=== PATIENT | female | born 1930 | race Caucasian/White ===

== ENCOUNTER → 2017-02-26 | Outpatient (CLI) | payer MEDICARE, OTHER ==
--- NOTE | 2017-02-26 14:10 | RAD ---
EXAM: Bilateral lower extremity Doppler sonogram. HISTORY: Swelling. TECHNIQUE: Grayscale and color Doppler sonographic imaging of the lower extremity veins with spectral waveform analysis was performed. COMPARISON: None. FINDINGS: There is normal color flow, normal compressibility and there are normal spectral waveforms within the lower extremity veins. IMPRESSION: No Doppler evidence of lower extremity venous thrombosis.
== END | disposition home or self-care (01) ==
LOC: US 12:51
PROVIDERS: ATTEND Nurse Practitioner Family
DX: M79.662 Pain in left lower leg (principal); M79.661 Pain in right lower leg; R79.0 Abnormal level of blood mineral; F03.90 Unspecified dementia, unspecified severity, without behavioral disturbance, psychotic disturbance, mood disturbance, and anxiety; F05 Delirium due to known physiological condition
CPT/HCPCS: 93970

== ENCOUNTER 2017-08-01 21:35 | Emergency (ER) | payer MEDICARE, OTHER ==
[~2017-08-01] VITALS: Ht 152.4 cm; Wt 54.4 kg
--- NOTE | 2017-08-01 22:29 | RAD ---
Indication: Trauma TECHNIQUE: CT head without IV contrast COMPARISON: None FINDINGS: No pathologic extra-axial or intra-axial fluid collection. Mild diffuse cerebral atrophy noted with ex vacuo dilation of the ventricles. The basal cisterns are within normal limits. Scattered foci of low-attenuation in the bilateral basal ganglia likely lacunar infarcts. Low-attenuation of the periventricular white matter noted. No acute intracranial bleed. Small Subgaleal hematoma is seen in the left posterolateral high convexity with soft tissue injury. No calvarial fractures. Visualized paranasal sinuses and mastoid air cells are clear. IMPRESSION: 1. Small subgaleal hematoma with scalp injury overlying left posterolateral high convexity. 2. No acute intracranial bleed. 3. Bilateral low attenuating foci in the basal ganglia likely lacunar infarcts. 4. White matter changes likely secondary to chronic microvascular ischemic disease. If concern for acute ischemic stroke is high, please consider MRI brain. CT cervical spine Indication: Trauma TECHNIQUE: CT cervical spine without IV contrast with multiplanar reformats. COMPARISON: None FINDINGS: Cervical spine is in normal anatomic alignment. Atlantoaxial joint interval is preserved. No compression deformities. Facet joints are in normal anatomic alignment. There is intervertebral disc space narrowing noted at multiple levels most severe at C4-C5. Multilevel moderate facet arthropathy. No acute fractures. Significant atherosclerotic burden seen in the proximal left ICA and right ICA. No enlarged cervical lymphadenopathy. 1 cm low attenuating lesion is seen in the left thyroid lobe. Visualized lung apices are clear. Prevertebral soft tissue within normal limits. IMPRESSION: 1. No acute fractures. 2. 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 Electronically signed by: Daniel Carver DO (08/01/2017 10:26 PM) [facility]
--- NOTE | 2017-08-01 22:37 | PHYS DOC ---
General Chief Complaint: MECHANICAL FALL Stated Complaint: FALL Time Seen by MD: 21:37 Source: patient, family, EMS Exam Limitations: clinical condition (dementia) Problems: History of Present Illness Initial Comments 86-year-old female brought to the ED by EMS for fall injury. EMS reports that the patient tripped over a curb outside her home causing her to fall hitting the back of her head on the ground. No reported loss of consciousness or neck pain, no nausea or photophobia and no global headache. Patient does have a hematoma at the occiput and is on Plavix for prior TIAs and is brought to the ED for evaluation. On arrival her vital signs are stable she is awake and alert no somnolescence or focal neurologic deficit. She is very pleasant and joking with staff and her daughter who is at bedside reports that her mental status is at baseline. CT is indicated and pending. Occurred: just prior to arrival Severity: moderate Location: occipital Method of Injury: fell Loss of Consciousness: no loss of consciousness Associated Symptoms: other Allergies: Coded Allergies: No Known Drug Allergies (Unverified , 08/01/17) Past Medical History Medical History: other (TIA, hyperlipidemia, hypertension, dementia) Surgical History: other (hysterectomy, leg fracture) Social History Smoker: non-smoker Alcohol: none Drugs: none Review of Systems All Other Systems: Reviewed and Negative (review of systems as per history of present illness, patient with dementia and is a poor historian) Physical Exam General Appearance: WD/WN, no apparent distress Head: other (3 cm hematoma at the occiput no palpable bony deformity negative Harris sign negative raccoon eyes and otherwise normocephalic atraumatic) Eyes: bilateral eye normal inspection, bilateral eye PERRL, bilateral eye EOMI Ears, Nose, Throat, Mouth: hearing grossly normal, no evidence of ENT injury, no dental injury (no ear or nose discharge no fluid behind TMs bilaterally) Neck: non-tender, full range of motion, normal alignment Cardiovascular/Respiratory: normal peripheral pulses, no respiratory distress Gastrointestinal: non tender, soft Back: normal inspection, no vertebral tenderness Extremities: non-tender, normal inspection Psychiatric: alert Cranial Nerves: normal hearing, normal speech, PERRL Coordination/Gait: normal gait Motor/Sensory: no motor deficit, no sensory deficit Skin: normal color, warm/dry [place] Coma Score Best Eye Response: (4) open spontaneously Best Verbal Response: (5) oriented Best Motor Response: (6) obeys commands [place] Total: 15 Orders, Labs, Meds PATIENT: JAILENE GREENBERG ACCOUNT: [id number] : 1930 LOCATION: ER AGE: 86 SEX: F EXAM STATUS: PRE ER ORD. PHYSICIAN: MARKO WEEKS DO REASON: fall to occiput PROCEDURE: CT HEAD AND CERVICAL SPINE WO Indication: Trauma TECHNIQUE: CT head without IV contrast COMPARISON: None FINDINGS: No pathologic extra-axial or intra-axial fluid collection. Mild diffuse cerebral atrophy noted with ex vacuo dilation of the ventricles. The basal cisterns are within normal limits. Scattered foci of low-attenuation in the bilateral basal ganglia likely lacunar infarcts. Low-attenuation of the periventricular white matter noted. No acute intracranial bleed. Small Subgaleal hematoma is seen in the left posterolateral high convexity with soft tissue injury. No calvarial fractures. Visualized paranasal sinuses and mastoid air cells are clear. IMPRESSION: 1. Small subgaleal hematoma with scalp injury overlying left posterolateral high convexity. 2. No acute intracranial bleed. 3. Bilateral low attenuating foci in the basal ganglia likely lacunar infarcts. 4. White matter changes likely secondary to chronic microvascular ischemic disease. If concern for acute ischemic stroke is high, please consider MRI brain. CT cervical spine Indication: Trauma TECHNIQUE: CT cervical spine without IV contrast with multiplanar reformats. COMPARISON: None FINDINGS: Cervical spine is in normal anatomic alignment. Atlantoaxial joint interval is preserved. No compression deformities. Facet joints are in normal anatomic alignment. There is intervertebral disc space narrowing noted at multiple levels most severe at C4-C5. Multilevel moderate facet arthropathy. No acute fractures. Significant atherosclerotic burden seen in the proximal left ICA and right ICA. No enlarged cervical lymphadenopathy. 1 cm low attenuating lesion is seen in the left thyroid lobe. Visualized lung apices are clear. Prevertebral soft tissue within normal limits. IMPRESSION: 1. No acute fractures. 2. 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 Electronically signed by: Daniel Carver DO (08/01/2017 10:26 PM) [facility] DICTATED AND SIGNED BY: DANIEL CARVER DO DATE: 03/07/200 CC: FATIMAH CAPUTO MD; MARKO WEEKS DO ~ UA: WBC 5-10, leukocyte esterase small Cephalexin by mouth given in the ED and prescription No new or progressive symptoms throughout the ED course. With daughter at bedside I discussed signs and symptoms to monitor as well as indications for urgent return to the department. I discussed head injury precautions, over-the- counter medications and icing. I discussed activity modification and the daughter's questions were answered to her satisfaction. I discussed holding Plavix until follow-up with Dr. Caputo on Friday, the daughter expressed agreement and understanding with treatment plan. Departure Time of Disposition: 22:56 Disposition: 01 HOME, SELF-CARE Diagnosis: Fall, UTI, Concussion, Scalp Hematoma Condition: GOOD Patient Instructions: Concussion and Brain Injury, [id number], Scalp Hematoma Additional Instructions: Please review the patient education materials given by ED staff. Aggressive hydration to prevent dehydration. [id number] Tylenol as needed for discomfort. Ice to hematoma 15-20 minutes 4-6 times daily for the first 48 hours. No Plavix until approved by your doctor. Prescription: Cephalexin Follow-up with Dr. Caputo on Friday for recheck as already scheduled. Return to ED with new or changing symptoms. MARKO WEEKS DO Aug 01, 2017 22:37
[2017-08-01 22:46] LABS: CLARITY,URINE CLEAR; COLOR,URINE YELLOW
[2017-08-01 22:47] LABS: BILIRUBIN,URINE NEG (NEG); GLUCOSE,URINE NEG (NEG); NITRITE,URINE NEG (NEG); UROBILINOGEN,URINE 0.2 mg/dL (0.2 mg/dL)
[2017-08-01 22:48] LABS: BACTERIA,URINE FEW /HPF (0-FEW); SQUAMOUS EPITHELIAL CELL,UR FEW /LPF
[2017-08-01] MEDS ORDERED: CEPH500T PO (22:56)
[2017-08-01] MEDS ORDERED: CEPHALEXIN 250 MG CAPSULE PO ONE (23:00)
[2017-08-01 23:09] VITALS: BP 138/84
== END 2017-08-01 23:00 | disposition home or self-care (01) ==
LOC: ER 21:35
DX: S06.0X0A Concussion without loss of consciousness, initial encounter (principal); N39.0 Urinary tract infection, site not specified; E78.5 Hyperlipidemia, unspecified; F03.90 Unspecified dementia, unspecified severity, without behavioral disturbance, psychotic disturbance, mood disturbance, and anxiety; I10 Essential (primary) hypertension; Z86.73 Personal history of transient ischemic attack (TIA), and cerebral infarction without residual deficits; Z79.02 Long term (current) use of antithrombotics/antiplatelets; W01.0XXA Fall on same level from slipping, tripping and stumbling without subsequent striking against object, initial encounter; Y93.89 Activity, other specified; Y99.8 Other external cause status; Y92.098 Other place in other non-institutional residence as the place of occurrence of the external cause
CPT/HCPCS: 70450; 72125; 81001; 87086; 99285-25

== ENCOUNTER 2017-08-13 20:06 | Emergency (ER) | payer MEDICARE, OTHER ==
[~2017-08-13] VITALS: Ht 152.4 cm; Wt 54.4 kg
[~2017-08-13 20:06] MED LIST: CEPH500T PO
[2017-08-13] MEDS ORDERED: cefTRIAXone IV Push 1 GM VIAL. IVP ONE (20:45)
[2017-08-13] MEDS ORDERED: IV NORMAL SALINE 1,000ML 1,000 ML IV ONE (20:45)
[2017-08-13 21:10] LABS: BASO # 0.1 x10^3/uL (0.0-0.2); BASO % 1 % (0-3); EOS % 0 % (0-3); HEMATOCRIT 39.6 % (36.0-47.0); HEMOGLOBIN 13.5 g/dL (12.0-15.5); LYMPH # 2.5 x10^3/uL (1.0-4.8); LYMPH % 34 % (24-48); MEAN CORPUSCULAR HEMOGLOBIN 31 pg (25-35); MEAN CORPUSCULAR HGB CONC 34 g/dL (31-37); MEAN CORPUSCULAR VOLUME 90 fL (79-100); MONO # 0.7 x10^3/uL (0.0-1.1); MONO % 9 % (0-9); NEUT # 4.1 x10^3uL (1.8-7.7); NEUT % 56 % (31-73); PLATELET COUNT 245 x10^3/uL (140-400); RED CELL DISTRIBUTION WIDTH 14.6 % (11.5-14.5); WHITE BLOOD COUNT 7.4 x10^3/uL (4.0-11.0)
[2017-08-13 21:21] LABS: ALBUMIN 3.8 g/dL (3.4-5.0); ALBUMIN/GLOBULIN RATIO 1.1 (1.0-1.7); CALCIUM 9.5 mg/dL (8.5-10.1); GFR 52.7; POTASSIUM 3.4 mmol/L (3.5-5.1); TOTAL BILIRUBIN 0.3 mg/dL (0.2-1.0); TOTAL PROTEIN 7.2 g/dL (6.4-8.2)
[2017-08-13 21:32] LABS: BILIRUBIN,URINE NEG (NEG); CLARITY,URINE CLEAR; COLOR,URINE YELLOW; GLUCOSE,URINE NEG (NEG); NITRITE,URINE NEG (NEG); UROBILINOGEN,URINE 0.2 mg/dL (0.2 mg/dL)
[2017-08-13 21:33] LABS: BACTERIA,URINE 0 /HPF (0-FEW); SQUAMOUS EPITHELIAL CELL,UR FEW /LPF
[2017-08-13 21:34] LABS: HYALINE CASTS, URINE FEW /HPF
[2017-08-13 22:12] VITALS: BP 136/77
[2017-08-13] MEDS ORDERED: CEPH250S2 PO (22:13)
--- NOTE | 2017-08-13 22:13 | PHYS DOC ---
Past History Past Medical History: High Cholesterol, Hypertension, UTI Past Surgical History: Hysterectomy Alcohol Use: None Drug Use: None Adult General Chief Complaint Chief Complaint: PAIN ON URINATION HPI HPI Patient is a 86-year-old female with history significant for recent urinary tract infection presents to the ER today secondary to an episode of increased confusion at home. Daughter reports the patient lives at home with her as well as her sister. She reports that today she thinks that she did too much with her mother. She reports that they took her to [place] and they went and ran hours with her and then this evening she became confused and Leaving the house and was walking around the neighborhood and was found by her physical therapist. Patient has no other symptoms at this time. Patient has any fevers shakes chills nausea vomiting diarrhea cough cold rhinorrhea. Normal by mouth intake. No fevers. Daughter reports that currently her mother is completely back to her baseline and his conversing normal and that her normal mental status. Mother does report that she thinks her mom to call her medications but she is not sure. Daughter reports that she does not want her mother admitted because she thinks that she will do worsen the hospital if there is any way possible she would prefer us to send her home with antibiotics.\ Review of systems: Constitutional: Denies fever or chills Eyes: Denies change in visual acuity, redness, or eye pain HENT: Denies nasal congestion or sore throat Respiratory: Denies cough or shortness of breath All other systems were reviewed and found to be within normal limits, except as documented in this note. Physical exam: Constitutional: Well developed, well nourished, no acute distress, non-toxic appearance. HENT: Normocephalic, atraumatic, bilateral external ears normal, nose normal. Eyes: PERRLA, EOMI, conjunctiva normal, no discharge. Neck: Normal range of motion, no tenderness, supple, no stridor. Cardiovascular: Heart rate regular rhythm, Lungs & Thorax: Bilateral breath sounds clear to auscultation Abdomen: No abdominal distention. Skin: Warm, dry, no erythema, no rash. Back: Normal spinal curvature Extremities: No tenderness, no cyanosis, no clubbing, ROM intact, no edema. Neurologic: Alert and oriented X 3, normal motor function, normal sensory function, no focal deficits noted. Psychologic: Affect normal, judgement normal, mood normal. Patient's ER physical exam was most remarkable: Alert awake oriented 3 and appropriate. EKG as interpreted by ER physician reveals: : Labs reviewed: All normal except for 5 daily disease per high-power field unlikely consistent with urinary tract infection Assessment and plan: 1. Altered mental status that was transient with confusion. Patient is currently back to baseline. Patient refused RBCs per high per field which is unlikely causing these symptoms although it is possible. What is more likely is increased exertion today with increased traveling and running errands of the possibility. Daughter reports that her mother was started on cervical however she has not given her any of her cervical secondary to concerns of confusion. Mother and daughter both wish to be discharged home and she feels back to her baseline and she is currently appropriate. Admission was offered to them. Patient is not febrile and normal conversant. Patient be given a dose of IV Rocephin here in the ED in case this is an early urinary tract infection and will be sent home with a seven-day course of by mouth Keflex. Current Medications Current Medications Current Medications Medications (Trade) Dose Ordered Sig/Keny Start Time Stop Time Status Last Admin Dose Admin Ceftriaxone Sodium 1 gm/ Sodium Chloride 50 ml @ 100 mls/hr 1X ONCE 08/13/17 20:45 08/13/17 20:45 DC Ceftriaxone Sodium (Rocephin) 1 gm 1X ONCE 08/13/17 20:45 08/13/17 20:46 DC 08/13/17 21:02 1 GM Sodium Chloride 1,000 ml @ 1,000 mls/hr 1X ONCE 08/13/17 20:45 08/13/17 21:44 DC 08/13/17 21:02 1,000 MLS/HR Allergies Allergies Allergies Coded Allergies Type Severity Reaction Last Updated Verified No Known Drug Allergies 08/01/17 No Current Patient Data Vital Signs Vital Signs Date Time Temp Pulse Resp B/P (MAP) Pulse Ox O2 Delivery O2 Flow Rate FiO2 08/13/17 20:06 98.1 82 16 97 Room Air Lab Results Laboratory Tests Test 08/13/17 20:42 08/13/17 20:51 Urine Collection Type Unknown Urine Color Yellow Urine Clarity Clear Urine pH 5.0 Urine Specific [place] 1.010 Urine Protein Neg (NEG-TRACE) Urine Glucose (UA) Neg mg/dL (NEG) Urine Ketones (Stick) Neg mg/dL (NEG) Urine Blood Neg (NEG) Urine Nitrite Neg (NEG) Urine Bilirubin Neg (NEG) Urine Urobilinogen Dipstick 0.2 mg/dL (0.2 mg/dL) Urine Leukocyte Esterase Trace (NEG) Urine RBC 1-2 /HPF (0-2) Urine WBC 5-10 /HPF (0-4) Urine Squamous Epithelial Cells Few /LPF Urine Bacteria 0 /HPF (0-FEW) Urine Hyaline Casts Few /HPF Urine Mucus Slight /LPF White Blood Count 7.4 x10^3/uL (4.0-11.0) Red Blood Count 4.40 x10^6/uL (3.50-5.40) Hemoglobin 13.5 g/dL (12.0-15.5) Hematocrit 39.6 % (36.0-47.0) Mean Corpuscular Volume 90 fL (79-100) Mean Corpuscular Hemoglobin 31 pg (25-35) Mean Corpuscular Hemoglobin Concent 34 g/dL (31-37) Red Cell Distribution Width 14.6 % (11.5-14.5) H Platelet Count 245 x10^3/uL (140-400) Neutrophils (%) (Auto) 56 % (31-73) Lymphocytes (%) (Auto) 34 % (24-48) Monocytes (%) (Auto) 9 % (0-9) Eosinophils (%) (Auto) 0 % (0-3) Basophils (%) (Auto) 1 % (0-3) Neutrophils # (Auto) 4.1 x10^3uL (1.8-7.7) Lymphocytes # (Auto) 2.5 x10^3/uL (1.0-4.8) Monocytes # (Auto) 0.7 x10^3/uL (0.0-1.1) Eosinophils # (Auto) 0.0 x10^3/uL (0.0-0.7) Basophils # (Auto) 0.1 x10^3/uL (0.0-0.2) Sodium Level 138 mmol/L (136-145) Potassium Level 3.4 mmol/L (3.5-5.1) L Chloride Level 101 mmol/L (98-107) Carbon Dioxide Level 27 mmol/L (21-32) Anion Gap 10 (6-14) Blood Urea Nitrogen 17 mg/dL (7-20) Creatinine 1.0 mg/dL (0.6-1.0) Estimated GFR (Cockcroft-Gault) 52.7 BUN/Creatinine Ratio 17 (6-20) Glucose Level 96 mg/dL (70-99) Calcium Level 9.5 mg/dL (8.5-10.1) Total Bilirubin 0.3 mg/dL (0.2-1.0) Aspartate Amino Transferase (AST) 18 U/L (15-37) Alanine Aminotransferase (ALT) 16 U/L (14-59) Alkaline Phosphatase 144 U/L (46-116) H Total Protein 7.2 g/dL (6.4-8.2) Albumin 3.8 g/dL (3.4-5.0) Albumin/Globulin Ratio 1.1 (1.0-1.7) EKG EKG [] Radiology/Procedures Radiology/Procedures [] Course & Med Decision Making Course & Med Decision Making Pertinent Labs and Imaging studies reviewed. (See chart for details) [] Dragon Disclaimer Dragon Disclaimer This electronic medical record was generated, in whole or in part, using a voice recognition dictation system. Departure Departure: Impression: Primary Impression: Confusion Additional Impression: Urinary tract infection Disposition: HOME, SELF-CARE Condition: IMPROVED Referrals: FATIMAH CAPUTO MD (PCP) Patient Instructions: Confusion, Urinary Tract Infection Scripts Cephalexin (CEPHALEXIN) 250 Mg/5 Ml Susp.recon 10 ML PO TID for 7 Days, #210 ML Prov: JAMES TEJADA MD 08/13/17 Problem Qualifiers JAMES TEJADA MD Aug 13, 2017 22:13
== END 2017-08-13 22:24 | disposition home or self-care (01) ==
LOC: ER 20:06
DX: R41.0 Disorientation, unspecified (principal); N39.0 Urinary tract infection, site not specified; I10 Essential (primary) hypertension; E78.00 Pure hypercholesterolemia, unspecified; Z90.710 Acquired absence of both cervix and uterus
CPT/HCPCS: 36415; 80053; 81001; 85025; 87086; 87186; 96361; 96374; 99284; J0696; J7030

== ENCOUNTER 2017-10-23 11:14 | Emergency (ER) | payer MEDICARE, OTHER ==
[~2017-10-23 11:14] MED LIST changes: +CEPH250S2 PO
[2017-10-23 11:15] VITALS: BP 145/56
[2017-10-23 11:44] LABS: BASO % 0 % (0-3); EOS % 0 % (0-3); HEMATOCRIT 40.1 % (36.0-47.0); HEMOGLOBIN 13.4 g/dL (12.0-15.5); LYMPH # 1.4 x10^3/uL (1.0-4.8); LYMPH % 25 % (24-48); MEAN CORPUSCULAR HEMOGLOBIN 30 pg (25-35); MEAN CORPUSCULAR HGB CONC 34 g/dL (31-37); MEAN CORPUSCULAR VOLUME 90 fL (79-100); MONO # 0.6 x10^3/uL (0.0-1.1); MONO % 10 % (0-9); NEUT # 3.8 x10^3uL (1.8-7.7); NEUT % 65 % (31-73); PLATELET COUNT 244 x10^3/uL (140-400); RED BLOOD COUNT 4.45 x10^6/uL (3.50-5.40); RED CELL DISTRIBUTION WIDTH 16.5 % (11.5-14.5); WHITE BLOOD COUNT 5.8 x10^3/uL (4.0-11.0)
[2017-10-23 11:46] LABS: HEMOGLOBIN ISTAT 12.6 gm/dL; POTASSIUM ISTAT 3.4 mmol/L (3.5-5.0)
[2017-10-23 11:54] LABS: BACTERIA,URINE 0 /HPF (0-FEW); BILIRUBIN,URINE NEG (NEG); CLARITY,URINE CLEAR; COLOR,URINE YELLOW; GLUCOSE,URINE NEG (NEG); NITRITE,URINE NEG (NEG); RBC,URINE RARE /HPF (0-2); UROBILINOGEN,URINE 0.2 mg/dL (0.2 mg/dL); WBC,URINE RARE /HPF (0-4)
[2017-10-23 11:55] LABS: HYALINE CASTS, URINE FEW /HPF
--- NOTE | 2017-10-23 12:45 | ED.ADGEN ---
Past History Past Medical History: Dementia, High Cholesterol, Hypertension, UTI Past Surgical History: Hysterectomy Alcohol Use: None Drug Use: None Adult General Chief Complaint Chief Complaint Request for a medical screening exam HPI HPI Patient is a 86-year-old female with history of hypertension high cholesterol, dementia who presents with request for medical screening exam. Patient's daughter who is guardian and present with patient states the patient is being anxious and upset this morning regarding a visit by her sisters yes would like to put her into a snf. Patient is alert and oriented to person and place but confused with car 2 months year and president. She denies any medical complaints at this time. Patient noted to have old bruising on her forearm and left leg from a fall several days ago. Patient is not currently on anticoagulation therapy. Patient's daughter also notes that the patient has had urinary frequency and incontinence the past 2 weeks. Patient denies dysuria frequency and urgency at this time. Daughter also expresses concerns of further deterioration in membrane progression of dementia. No other acute symptoms or complaints.. [] Review of Systems Review of Systems Review symptoms as per history of present illness. Limited due the patient's dementia. Allergies Allergies Allergies Coded Allergies Type Severity Reaction Last Updated Verified No Known Drug Allergies 08/01/17 No Physical Exam Physical Exam Constitutional: Well developed, well nourished. [] HENT: Normocephalic, atraumatic, bilateral external ears normal, oropharynx moist, nose normal. [] Eyes: PERRLA, EOMI, conjunctiva normal, no discharge. [] Neck: Normal range of motion, no tenderness [] Cardiovascular:Heart rate regular rhythm, no murmur [] Lungs & Thorax: Bilateral breath sounds clear to auscultation [] Abdomen: Bowel sounds normal, soft, no tenderness. [] Skin: Warm, dry, no erythema, no rash. [] Back: No tenderness, no CVA tenderness. [] Extremities: Bruising and left extensor forearm and distal leg. No bony tenderness, good range of motion.[] Neurologic: Alert and oriented X person place, normal motor function, normal sensory function, no focal deficits noted. [] Psychologic: Affect normal, judgement normal, mood normal. [] Current Patient Data Vital Signs Vital Signs Date Time Temp Pulse Resp B/P (MAP) Pulse Ox O2 Delivery O2 Flow Rate FiO2 5/24/18 11:15 98.6 71 18 99 Room Air Lab Results Laboratory Tests Test 10/23/17 11:19 White Blood Count 5.8 x10^3/uL (4.0-11.0) Red Blood Count 4.45 x10^6/uL (3.50-5.40) Hemoglobin 13.4 g/dL (12.0-15.5) POC Hemoglobin 12.6 gm/dL Hematocrit 40.1 % (36.0-47.0) POC Hematocrit 37 % Mean Corpuscular Volume 90 fL (79-100) Mean Corpuscular Hemoglobin 30 pg (25-35) Mean Corpuscular Hemoglobin Concent 34 g/dL (31-37) Red Cell Distribution Width 16.5 % (11.5-14.5) H Platelet Count 244 x10^3/uL (140-400) Neutrophils (%) (Auto) 65 % (31-73) Lymphocytes (%) (Auto) 25 % (24-48) Monocytes (%) (Auto) 10 % (0-9) H Eosinophils (%) (Auto) 0 % (0-3) Basophils (%) (Auto) 0 % (0-3) Neutrophils # (Auto) 3.8 x10^3uL (1.8-7.7) Lymphocytes # (Auto) 1.4 x10^3/uL (1.0-4.8) Monocytes # (Auto) 0.6 x10^3/uL (0.0-1.1) Eosinophils # (Auto) 0.0 x10^3/uL (0.0-0.7) Basophils # (Auto) 0.0 x10^3/uL (0.0-0.2) Urine Collection Type Void Urine Color Yellow Urine Clarity Clear Urine pH 6.5 Urine Specific [place] 1.010 Urine Protein Neg (NEG-TRACE) Urine Glucose (UA) Neg mg/dL (NEG) Urine Ketones (Stick) Neg mg/dL (NEG) Urine Blood Neg (NEG) Urine Nitrite Neg (NEG) Urine Bilirubin Neg (NEG) Urine Urobilinogen Dipstick 0.2 mg/dL (0.2 mg/dL) Urine Leukocyte Esterase Neg (NEG) Urine RBC Rare /HPF (0-2) Urine WBC Rare /HPF (0-4) Urine Squamous Epithelial Cells None /LPF Urine Bacteria 0 /HPF (0-FEW) Urine Hyaline Casts Few /HPF Urine Mucus Slight /LPF POC Sodium 139 mmol/L (135-145) POC Potassium 3.4 mmol/L (3.5-5.0) L POC Chloride 101 mmol/L (98-110) POC Total CO2 26 mmol/L (23-32) Anion Gap 17 mmol/L (6-14) H POC Blood Urea Nitrogen 13 mg/dL (8-26) POC Creatinine 0.9 mg/dL (0.5-1.4) Glucose Level 103 mg/dL (60-99) H POC Ionized Calcium (Elizabeth) 1.2 mmol/L (1.13-1.32) EKG EKG [] Radiology/Procedures Radiology/Procedures [] Course & Med Decision Making Course & Med Decision Making Pertinent Labs and Imaging studies reviewed. (See chart for details) [Stable no signs, labs nondiagnostic. No evidence of UTI. The daughter expressed concerns of good and bad days rate related to dementia. Patient does not currently appear to be agitated.. Recommendations are to follow-up with PCP and memory career portals teacher for further evaluation and supervision of dementia. Daughter expresses that she does not feel as though the patient requires a snf and is comfortable taking her home.] Final Impression Final Impression [1. medical screening exam 2. D/o dementia] Sofia Disclaimer Remion Disclaimer This electronic medical record was generated, in whole or in part, using a voice recognition dictation system. SIRIA SCOTT DO October 23, 2017 12:45
--- NOTE | 2017-10-23 16:16 | ED.ADGEN ---
Past History Past Medical History: Dementia, High Cholesterol, Hypertension, UTI Past Surgical History: Hysterectomy Alcohol Use: None Drug Use: None Adult General Chief Complaint Chief Complaint medical screening exam HPI HPI Patient is a [] Review of Systems Review of Systems Constitutional: Denies fever or chills [] Eyes: Denies change in visual acuity, redness, or eye pain [] HENT: Denies nasal congestion or sore throat [] Respiratory: Denies cough or shortness of breath [] Cardiovascular: No additional information not addressed in HPI [] GI: Denies abdominal pain, nausea, vomiting, bloody stools or diarrhea [] : Denies dysuria or hematuria [] Musculoskeletal: Denies back pain or joint pain [] Integument: Denies rash or skin lesions [] Neurologic: Denies headache, focal weakness or sensory changes [] Endocrine: Denies polyuria or polydipsia [] All other systems were reviewed and found to be within normal limits, except as documented in this note. Allergies Allergies Allergies Coded Allergies Type Severity Reaction Last Updated Verified No Known Drug Allergies 08/01/17 No Physical Exam Physical Exam Constitutional: Well developed, well nourished, no acute distress, non-toxic appearance. [] HENT: Normocephalic, atraumatic, bilateral external ears normal, oropharynx moist, no oral exudates, nose normal. [] Eyes: PERRLA, EOMI, conjunctiva normal, no discharge. [] Neck: Normal range of motion, no tenderness, supple, no stridor. [] Cardiovascular:Heart rate regular rhythm, no murmur [] Lungs & Thorax: Bilateral breath sounds clear to auscultation [] Abdomen: Bowel sounds normal, soft, no tenderness, no masses, no pulsatile masses. [] Skin: Warm, dry, no erythema, no rash. [] Back: No tenderness, no CVA tenderness. [] Extremities: No tenderness, no cyanosis, no clubbing, ROM intact, no edema. [] Neurologic: Alert and oriented X 3, normal motor function, normal sensory function, no focal deficits noted. [] Psychologic: Affect normal, judgement normal, mood normal. [] Current Patient Data Vital Signs Vital Signs Date Time Temp Pulse Resp B/P (MAP) Pulse Ox O2 Delivery O2 Flow Rate FiO2 10/23/17 11:15 98.6 71 18 99 Room Air Lab Results Laboratory Tests Test 10/23/17 11:19 White Blood Count 5.8 x10^3/uL (4.0-11.0) Red Blood Count 4.45 x10^6/uL (3.50-5.40) Hemoglobin 13.4 g/dL (12.0-15.5) POC Hemoglobin 12.6 gm/dL Hematocrit 40.1 % (36.0-47.0) POC Hematocrit 37 % Mean Corpuscular Volume 90 fL (79-100) Mean Corpuscular Hemoglobin 30 pg (25-35) Mean Corpuscular Hemoglobin Concent 34 g/dL (31-37) Red Cell Distribution Width 16.5 % (11.5-14.5) H Platelet Count 244 x10^3/uL (140-400) Neutrophils (%) (Auto) 65 % (31-73) Lymphocytes (%) (Auto) 25 % (24-48) Monocytes (%) (Auto) 10 % (0-9) H Eosinophils (%) (Auto) 0 % (0-3) Basophils (%) (Auto) 0 % (0-3) Neutrophils # (Auto) 3.8 x10^3uL (1.8-7.7) Lymphocytes # (Auto) 1.4 x10^3/uL (1.0-4.8) Monocytes # (Auto) 0.6 x10^3/uL (0.0-1.1) Eosinophils # (Auto) 0.0 x10^3/uL (0.0-0.7) Basophils # (Auto) 0.0 x10^3/uL (0.0-0.2) Urine Collection Type Void Urine Color Yellow Urine Clarity Clear Urine pH 6.5 Urine Specific [place] 1.010 Urine Protein Neg (NEG-TRACE) Urine Glucose (UA) Neg mg/dL (NEG) Urine Ketones (Stick) Neg mg/dL (NEG) Urine Blood Neg (NEG) Urine Nitrite Neg (NEG) Urine Bilirubin Neg (NEG) Urine Urobilinogen Dipstick 0.2 mg/dL (0.2 mg/dL) Urine Leukocyte Esterase Neg (NEG) Urine RBC Rare /HPF (0-2) Urine WBC Rare /HPF (0-4) Urine Squamous Epithelial Cells None /LPF Urine Bacteria 0 /HPF (0-FEW) Urine Hyaline Casts Few /HPF Urine Mucus Slight /LPF POC Sodium 139 mmol/L (135-145) POC Potassium 3.4 mmol/L (3.5-5.0) L POC Chloride 101 mmol/L (98-110) POC Total CO2 26 mmol/L (23-32) Anion Gap 17 mmol/L (6-14) H POC Blood Urea Nitrogen 13 mg/dL (8-26) POC Creatinine 0.9 mg/dL (0.5-1.4) Glucose Level 103 mg/dL (60-99) H POC Ionized Calcium (Elizabeth) 1.2 mmol/L (1.13-1.32) EKG EKG [] Radiology/Procedures Radiology/Procedures [] Course & Med Decision Making Course & Med Decision Making Pertinent Labs and Imaging studies reviewed. (See chart for details) [] Final Impression Final Impression [] Dragon Disclaimer Dragon Disclaimer This electronic medical record was generated, in whole or in part, using a voice recognition dictation system. SIRIA SCOTT DO October 23, 2017 16:16
== END 2017-10-23 12:05 | disposition home or self-care (01) ==
LOC: ER 11:14
DX: F03.90 Unspecified dementia, unspecified severity, without behavioral disturbance, psychotic disturbance, mood disturbance, and anxiety (principal); R35.0 Frequency of micturition; E78.00 Pure hypercholesterolemia, unspecified; I10 Essential (primary) hypertension; Z87.440 Personal history of urinary (tract) infections; Z90.710 Acquired absence of both cervix and uterus
CPT/HCPCS: 36415; 80047; 81001; 85025; 99284

== ENCOUNTER → 2018-03-16 | Outpatient (CLI) | payer MEDICARE, OTHER ==
--- NOTE | 2018-03-16 15:31 | RAD ---
RENAL COMPLETE BILATERAL History: Chronic kidney disease stage III Comparison: None. Findings: Multiple sonographic images of the kidneys and urinary bladder are submitted. Right kidney measured 9.7 x 5.5 x 4.8 cm. Left kidney measured 9.6 x 5 x 3.4 cm. There is no hydronephrosis of either kidney. Ureteral jets are not seen in the urinary bladder during exam. Urinary bladder morphology is within normal limits with estimated volume of 48 cc. Cortical echogenicity of the kidneys can be considered within normal limits. Impression: 1. No significant abnormality is demonstrated. Electronically signed by: Endy Cardoso MD (03/16/2018 3:27 PM) [id number]
== END | disposition home or self-care (01) ==
LOC: US 10:40
PROVIDERS: ATTEND Family Medicine
DX: I12.9 Hypertensive chronic kidney disease with stage 1 through stage 4 chronic kidney disease, or unspecified chronic kidney disease (principal); N18.3 Chronic kidney disease, stage 3 (moderate)
CPT/HCPCS: 76770

== ENCOUNTER 2019-04-07 16:23 | Emergency (ER) | payer MEDICARE, OTHER ==
[~2019-04-07] VITALS: Ht 152.4 cm; Wt 49.5 kg
--- NOTE | 2019-04-07 17:01 | PHYS DOC ---
Past History Past Medical History: CAD, Dementia, High Cholesterol, Hypertension, UTI Past Surgical History: Hysterectomy Alcohol Use: None Drug Use: None Adult General Chief Complaint Chief Complaint: HIP PAIN HPI HPI Patient is an 88-year-old female who presents to the emergency department for evaluation along with her daughter. The patient's daughter states that the patient had wandered outside the house, and apparently fell in the driveway/garden in front of the house, as she heard the patient calling for help from the ground. She was able to help the patient up to her feet, and the patient has been able to walk, although slightly slowly. She complain of some left-sided rib pain, and question was some pain in her hips, but she is ambulatory, as above. She did sustain a superficial abrasion on her left knee but does not have any knee pain. The patient's history is limited secondary to underlying dementia, which is fairly advanced, and she does not have any recollection of the event, and is not able to provide any other meaningful history about the fall. She does not have any chest pain or shortness of breath, and no reported dizziness or lightheadedness. She does have an abrasion above her left eyebrow as well, suggesting that she struck her head. She does take Plavix according to her daughter. Patient's family states her last tetanus was about 2 years ago. Review of Systems Review of Systems Unable to obtain review of systems secondary to patient dementia Allergies Allergies Allergies Coded Allergies Type Severity Reaction Last Updated Verified No Known Drug Allergies 08/01/17 No Physical Exam Physical Exam PHYSICAL EXAM: CONSTITUTIONAL: Well developed, well nourished HEAD: normocephalic, there is a small contusion above the left eyebrow, the remainder of the cranium is atraumatic EENT: PERRL, EOMI. Conjunctivae normal color, sclerae non-icteric; moist mucous membranes. NECK: Supple, non-tender; no meningismus.There is full, painless range of motion of the cervical spine, without any focal bony midline tenderness to palpation. LUNGS: Lungs CTA, breathing even and unlabored. Normal air movement. HEART: Regular rate and rhythm, no murmur CHEST: No deformity; there is mild tenderness to palpation to the left lateral ribs, without bruising or crepitus, the remainder the chest wall is non-tender ABDOMEN: The abdomen is soft, and non-tender, no masses or bruits. EXTREM: Normal ROM; no deformity, no calf tenderness. Normal pulses palpable in all extremities. There is no pedal edema. There is chronic shortening of the right leg relative to the left, which the patient's daughter states is baseline since her prior hip fracture and repair. Both hips exhibit normal range of motion. There is no definite reproducible tenderness to palpation of the hips or pelvis. There is a superficial abrasion on the left anterior knee, without any bony tenderness to palpation or restriction in range of motion. The upper extremities are atraumatic. SKIN: No rash; no diaphoresis NEURO: Alert; normal speech impaired cognition secondary to underlying dementia, otherwise answers questions normally; CN's grossly intact; strength grossly intact without focal deficit. BACK: No CVA TTP.There is no bony tenderness to palpation of the thoracic or l umbar spine. Current Patient Data Vital Signs Vital Signs Date Time Temp Pulse Resp B/P (MAP) Pulse Ox O2 Delivery O2 Flow Rate FiO2 04/07/19 16:25 97.9 67 16 97 Room Air Lab Results Laboratory Tests Test 04/07/19 19:00 Urine Collection Type Unknown Urine Color Straw Urine Clarity Clear Urine pH 7.0 Urine Specific [place] 1.015 Urine Protein Neg Urine Glucose (UA) Neg mg/dL Urine Ketones (Stick) Neg mg/dL Urine Blood Neg Urine Nitrite Neg Urine Bilirubin Neg Urine Urobilinogen Dipstick 0.2 mg/dL Urine Leukocyte Esterase Neg Urine RBC 0 /HPF Urine WBC Rare /HPF Urine Squamous Epithelial Cells None /LPF Urine Bacteria 0 /HPF Current Medications Medications (Trade) Dose Ordered Sig/[place] Route PRN Reason Start Time Stop Time Status Last Admin Dose Admin Neomycin/ Polymyxin/ Bacitracin (Triple Antibiotic Ointment) 1 pkt STK-MED ONCE TP 04/07/19 19:29 04/07/19 19:29 DC EKG EKG Ventricular paced rhythm at a rate of 69 bpm with left axis deviation and secondary QRS widening without acute ischemic changes noted.[] Radiology/Procedures Radiology/Procedures PROCEDURE: CT HEAD WO CONTRAST CT HEAD WO CONTRAST History: Fall. Head trauma. Pain. Comparison: August 01, 2017 Technique: Noncontrast CT imaging was performed of the head. Exposure: One or more of the following individualized dose reduction techniques were utilized for this examination: 1. Automated exposure control 2. Adjustment of the mA and/or kV according to patient size 3. Use of iterative reconstruction technique. Findings: No intracranial hemorrhage. No mass effect. No hydrocephalus. Mild brain parenchymal volume loss. Moderate foci of decreased aeration within the hemispheric white matter, most often due to chronic microvascular ischemia. Bilateral basal ganglia and right thalamic chronic appearing lacunar infarcts. Left anterior lateral scalp soft tissue swelling. Imaged orbits are unremarkable. Imaged paranasal sinuses and mastoid air cells are clear. TMJ arthropathy. Impression: 1. No acute intracranial abnormality. 2. Left anterior lateral scalp soft tissue swelling. 3. Moderate sequela chronic microvascular ischemia and brain parenchymal volume loss. 4. 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 No comparison available. CLINICAL INDICATION: Pain after injury. Finding: Single AP view pelvis and two-view bilateral hip obtained. There is cortical irregularity of the superior pubic and inferior pubic rami on the left with no discrete fracture line. No displacement. The right-sided pelvic ring is intact. Mild degenerative change of the bilateral SI joint. 2 views left hip show normal bony alignment. No displaced fracture. No acute osseous or articular abnormality. 2 views the right hip show old healed fracture of the intertrochanteric region with intramedullary nail and screws in place. There is a stabilizing bob at the femoral neck. Alignment is anatomic. No acute fracture. IMPRESSION: 1. No apparent acute fracture. There is deformity of the superior and inferior pubic rami on the left which is most likely related to old healed fracture. There is persistent clinical concern, CT may provide additional information. 2. Old healed fracture of the proximal right femur status post ORIF. PROCEDURE: RIBS LEFT AND PA CHEST Single view chest and left-sided rib study dated 04/07/2019. No comparison available. Clinical data indication: Pain after fall. FINDINGS: Single upright view of the chest shows normal heart and mediastinal contours. Prominent mitral valve calcification. There is a dual lead left subclavian pacer in place. Lungs are somewhat hyperinflated but otherwise clear. No consolidation or pleural effusion. No pneumothorax. Dedicated views of left-sided ribs show no evidence of displaced left rib fracture. No acute bony abnormality. IMPRESSION: No acute radiographic abnormality. No evidence of displaced left rib fracture. Course & Med Decision Making Course & Med Decision Making Pertinent Labs and Imaging studies reviewed. (See chart for details) []Patient's condition remains stable. She is ambulatory, I discussed imaging reports with the patient's family. Patient's family request a urinalysis, as a states she is prone to UTIs. This will be performed. The patient will be released, when her urinalysis result is available. Dragon Disclaimer Dragon Disclaimer This electronic medical record was generated, in whole or in part, using a voice recognition dictation system. Departure Departure: Impression: Primary Impression: Rib contusion Additional Impressions: Accidental fall Dementia Abrasion Disposition: HOME, SELF-CARE Condition: STABLE Referrals: FATIMAH CAPUTO MD (PCP) Patient Instructions: Abrasions, Dementia, Fall Prevention and Home Safety, Rib Contusion Problem Qualifiers ALEXANDRIA FREEMAN MD Apr 07, 2019 17:01
--- NOTE | 2019-04-07 17:28 | EKG ---
[address] [address] Test Date: 2019-04-07 Test Time: 16:56:30 Pat Name: JAILENE GREENBERG Department: Room: Gender: F Lcpc: AIMEE : 1930 Requested By: ALEXANDRIA FREEMAN Order Number: [id number] Reading MD: Measurements Intervals [place] Rate: 69 P: 44 MI: 242 QRS: -82 QRSD: 150 T: 32 QT: 448 QTc: 482 Interpretive Statements SINUS RHYTHM PROLONGED [place] INTERVAL ABNORMAL LEFT AXIS DEVIATION RIGHT BUNDLE BRANCH BLOCK QRS(T) CONTOUR ABNORMALITY CONSIDER ANTEROSEPTAL MYOCARDIAL DAMAGE ABNORMAL ECG RI6.01 No previous ECG available for comparison
--- NOTE | 2019-04-07 17:51 | RAD ---
CT HEAD WO CONTRAST History: Fall. Head trauma. Pain. Comparison: August 01, 2017 Technique: Noncontrast CT imaging was performed of the head. Exposure: One or more of the following individualized dose reduction techniques were utilized for this examination: 1. Automated exposure control 2. Adjustment of the mA and/or kV according to patient size 3. Use of iterative reconstruction technique. Findings: No intracranial hemorrhage. No mass effect. No hydrocephalus. Mild brain parenchymal volume loss. Moderate foci of decreased aeration within the hemispheric white matter, most often due to chronic microvascular ischemia. Bilateral basal ganglia and right thalamic chronic appearing lacunar infarcts. Left anterior lateral scalp soft tissue swelling. Imaged orbits are unremarkable. Imaged paranasal sinuses and mastoid air cells are clear. TMJ arthropathy. Impression: 1. No acute intracranial abnormality. 2. Left anterior lateral scalp soft tissue swelling. 3. Moderate sequela chronic microvascular ischemia and brain parenchymal volume loss. 4. 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 Electronically signed by: Chris Ornelas DO (04/07/2019 5:48 PM) [id number]
--- NOTE | 2019-04-07 18:57 | RAD ---
Single view pelvis and two-view bilateral hip dated 04/07/2019. No comparison available. CLINICAL INDICATION: Pain after injury. Finding: Single AP view pelvis and two-view bilateral hip obtained. There is cortical irregularity of the superior pubic and inferior pubic rami on the left with no discrete fracture line. No displacement. The right-sided pelvic ring is intact. Mild degenerative change of the bilateral SI joint. 2 views left hip show normal bony alignment. No displaced fracture. No acute osseous or articular abnormality. 2 views the right hip show old healed fracture of the intertrochanteric region with intramedullary nail and screws in place. There is a stabilizing bob at the femoral neck. Alignment is anatomic. No acute fracture. IMPRESSION: 1. No apparent acute fracture. There is deformity of the superior and inferior pubic rami on the left which is most likely related to old healed fracture. There is persistent clinical concern, CT may provide additional information. 2. Old healed fracture of the proximal right femur status post ORIF. Electronically signed by: Shiraz Ybarra MD (04/07/2019 6:54 PM) [facility]
--- NOTE | 2019-04-07 18:59 | RAD ---
Single view chest and left-sided rib study dated 04/07/2019. No comparison available. Clinical data indication: Pain after fall. FINDINGS: Single upright view of the chest shows normal heart and mediastinal contours. Prominent mitral valve calcification. There is a dual lead left subclavian pacer in place. Lungs are somewhat hyperinflated but otherwise clear. No consolidation or pleural effusion. No pneumothorax. Dedicated views of left-sided ribs show no evidence of displaced left rib fracture. No acute bony abnormality. IMPRESSION: No acute radiographic abnormality. No evidence of displaced left rib fracture. Electronically signed by: Shiraz Ybarra MD (04/07/2019 6:56 PM) [facility]
[2019-04-07] MEDS ORDERED: NEOMY/BACITR/POLYMYXIN OINT PACKET. TP ONE (19:29)
[2019-04-07 19:30] LABS: BACTERIA,URINE 0 /HPF (0-FEW); BILIRUBIN,URINE NEG (NEG); CLARITY,URINE CLEAR; COLOR,URINE STRAW; GLUCOSE,URINE NEG (NEG); NITRITE,URINE NEG (NEG); RBC,URINE 0 /HPF (0-2); UROBILINOGEN,URINE 0.2 mg/dL (0.2 mg/dL); WBC,URINE RARE /HPF (0-4)
[2019-04-07 19:42] VITALS: BP 187/94
--- NOTE | 2019-04-13 08:21 | EKG ---
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
== END 2019-04-07 19:42 | disposition home or self-care (01) ==
LOC: ER 16:23
DX: S20.212A Contusion of left front wall of thorax, initial encounter (principal); S80.212A Abrasion, left knee, initial encounter; M25.551 Pain in right hip; M25.552 Pain in left hip; F03.90 Unspecified dementia, unspecified severity, without behavioral disturbance, psychotic disturbance, mood disturbance, and anxiety; I25.10 Atherosclerotic heart disease of native coronary artery without angina pectoris; E78.00 Pure hypercholesterolemia, unspecified; I10 Essential (primary) hypertension; Z87.440 Personal history of urinary (tract) infections; W18.39XA Other fall on same level, initial encounter; Y93.89 Activity, other specified; Y92.89 Other specified places as the place of occurrence of the external cause; Y99.8 Other external cause status
CPT/HCPCS: 70450; 71101; 73521; 81001; 93005; 99285

== ENCOUNTER 2020-08-01 13:58 | Emergency (ER) | payer MEDICARE, OTHER ==
[~2020-08-01] VITALS: Ht 152.4 cm; Wt 55.8 kg
[2020-08-01 14:37] LABS: BASO % 0 % (0-3); EOS % 1 % (0-3); HEMATOCRIT 39.1 % (36.0-47.0); HEMOGLOBIN 12.8 g/dL (12.0-15.5); LYMPH % 31 % (24-48); MEAN CORPUSCULAR HEMOGLOBIN 31 pg (25-35); MEAN CORPUSCULAR HGB CONC 33 g/dL (31-37); MEAN CORPUSCULAR VOLUME 93 fL (79-100); MONO # 0.8 x10^3/uL (0.0-1.1); MONO % 12 % (0-9); NEUT # 3.7 x10^3uL (1.8-7.7); NEUT % 56 % (31-73); PLATELET COUNT 188 x10^3/uL (140-400); RED BLOOD COUNT 4.19 x10^6/uL (3.50-5.40); RED CELL DISTRIBUTION WIDTH 14.9 % (11.5-14.5); WHITE BLOOD COUNT 6.6 x10^3/uL (4.0-11.0)
[2020-08-01 14:43] LABS: CALCIUM 8.8 mg/dL (8.5-10.1); CREATININE 0.8 mg/dL (0.6-1.0); GFR 67.7
--- NOTE | 2020-08-01 14:46 | PHYS DOC ---
Past History Past Medical History: CAD, Dementia, High Cholesterol, Hypertension, UTI Past Surgical History: Hysterectomy Alcohol Use: None Drug Use: None General Adult EDM: Chief Complaint: MECHANICAL FALL HPI: HPI: Patient is a 89-year-old female brought in by EMS after a fall yesterday at 5 PM. Patient had gotten up and walked a few feet from the couch going to the restroom and fell. Fall was unwitnessed but it was heard by daughter. Who promptly found her mom sitting on the floor. Does not believe she hit her head. Patient was not complaining much pain yesterday and went to bed, this morning got up and walked out of her room but started complaining of mid and low back pain. She is still ambulatory today, sometimes uses a walker. Patient is taking Plavix for 2 TIAs 6 years ago. No recent illness. Patient stated she fell because "I was playing with a stick" and unable to answer where she was when she fell. Patient has a history of Alzheimer's dementia and history was predominantly provided by patient's daughter. Review of Systems: Review of Systems: All other systems within normal limits except for as noted in the HPI Allergies: Allergies: Allergies Coded Allergies Type Severity Reaction Last Updated Verified No Known Drug Allergies 08/01/17 No Physical Exam: PE: Constitutional: Well developed, well nourished, no acute distress, non-toxic appearance. [] HENT: Normocephalic, atraumatic, bilateral external ears normal, nose normal. [] Eyes: PERRLA, conjunctiva normal, no discharge. [] Neck: No rigidity, supple, no stridor. [] Cardiovascular: Regular rate and rhythm, brisk cap refill [] Lungs & Thorax: Non labored symmetric respirations, no tachypnea or respiratory distress [] Abdomen: Soft, nondistended. Skin: Warm, dry, no erythema, no rash. [] Back: No step-offs or deformities, slight curvature, tenderness over various thoracic and lumbar vertebrae Extremities: No deformities, range of motion grossly intact, no lower extremity edema [] Neurologic: Alert and oriented X 3, no focal deficits noted. [] Psychologic: Affect normal, judgement normal, mood normal. [] Current Patient Data: Labs: Laboratory Tests Test 08/01/20 14:19 White Blood Count 6.6 x10^3/uL (4.0-11.0) Red Blood Count 4.19 x10^6/uL (3.50-5.40) Hemoglobin 12.8 g/dL (12.0-15.5) Hematocrit 39.1 % (36.0-47.0) Mean Corpuscular Volume 93 fL (79-100) Mean Corpuscular Hemoglobin 31 pg (25-35) Mean Corpuscular Hemoglobin Concent 33 g/dL (31-37) Red Cell Distribution Width 14.9 % (11.5-14.5) H Platelet Count 188 x10^3/uL (140-400) Neutrophils (%) (Auto) 56 % (31-73) Lymphocytes (%) (Auto) 31 % (24-48) Monocytes (%) (Auto) 12 % (0-9) H Eosinophils (%) (Auto) 1 % (0-3) Basophils (%) (Auto) 0 % (0-3) Neutrophils # (Auto) 3.7 x10^3uL (1.8-7.7) Lymphocytes # (Auto) 2.0 x10^3/uL (1.0-4.8) Monocytes # (Auto) 0.8 x10^3/uL (0.0-1.1) Eosinophils # (Auto) 0.0 x10^3/uL (0.0-0.7) Basophils # (Auto) 0.0 x10^3/uL (0.0-0.2) Vital Signs: Vital Signs Date Time Temp Pulse Resp B/P (MAP) Pulse Ox O2 Delivery O2 Flow Rate FiO2 08/01/20 13:58 99.4 79 18 170/69 (102) 94 Room Air EKG: EKG: [] Radiology/Procedures: Radiology/Procedures: PROCEDURE: CT HEAD AND CERVICAL SPINE PQRS Compliance Statement: One or more of the following individualized dose reduction techniques were utilized for this examination: 1. Automated exposure control 2. Adjustment of the mA and/or kV according to patient size 3. Use of iterative reconstruction technique CT HEAD AND CERVICAL SPINE WITHOUT CONTRAST History: Reason: fall, on plavix / Comparison: CT head without contrast, April 07, 2019. Procedure: Axial images are obtained of the head from the skull base through the vertex without IV contrast. Noncontrast helical CT of the cervical spine was performed. Axial, sagittal, and coronal reconstructions were obtained. Findings: The ventricles and sulci are prominent, consistent with age-related cerebral atrophy. There is periventricular white matter hypoattenuation. This is a nonspecific finding but is commonly due to chronic small vessel ischemic disease in a patient of this age. No mass-effect, midline shift, hemorrhage or obvious acute infarction is identified. Basilar cisterns are patent. Bone windows demonstrate no significant calvarial abnormality. The visualized paranasal sinuses are clear. Mastoid air cells are well aerated. There is no evidence of acute fracture or acute malalignment of the cervical spine. There are no perched or jumped facet joints. Facet joints are hypertrophic. The vertebral body height and alignment are maintained. There is disc space narrowing of the cervical spine with relative sparing of C2/C3 and C7/T1. There is multilevel uncinate process hypertrophy. There are bilateral carotid artery calcifications. Cardiac pacer wires are partially seen. There is a 2 cm right thyroid/isthmus nodule. The visualized lung apices are clear. IMPRESSION: 1. No acute intracranial abnormality. 2. No acute fracture of the cervical spine. 3. There is a 2 cm right thyroid nodule. Consider outpatient thyroid ultrasound if not previously performed. [] CT THORACIC SPINE WO, CT CHEST_ABDOMEN_ AND PELVIS WITHOUT CONTRAST, CT LUMBAR SPINE WO Clinical Indication: Reason: fall, on plavix / Comparison: None. Technique: Helical CT imaging of the chest, abdomen and pelvis is performed without IV or oral contrast. Using source images small [id number] multiplanar reconstructions of the thoracic and lumbar spine performed using bone algorithm. Findings: In the setting of trauma, sensitivity for detection of pathology is significantly decreased without IV contrast. There is right thyroid nodule, please refer to CT cervical spine report for further details. There is left chest dual-chamber pacer. No acute mediastinal hematoma is identified. The main pulmonary arteries are dilated suggesting pulmonary arterial hypertension. There is three-vessel coronary artery disease. There is marked mitral annular calcification. There is severe calcific aortic valve stenosis. The cardiac size is normal, no pericardial effusion. There is small hiatal hernia. There is no pneumothorax. There is no pulmonary contusion. There is minimal atelectasis or scarring in the lung bases. There is no acute traumatic solid organ injury in the upper abdomen. Moderate atherosclerotic calcification of the abdominal aorta, no aneurysm. No acute injury of bowel is identified. There is moderate to severe sigmoid colon diverticulosis. The appendix is normal. There is no intraperitoneal free air or free fluid. The urinary bladder is intact. Hysterectomy. There is right femur intramedullary bob and hip screw. Old fracture of the intertrochanteric right femur. There is old fracture of the left superior pubic ramus. The hip joints are intact. Diffuse demineralization decreases sensitivity. There are chronic appearing nondisplaced bilateral rib fractures. There is mild old compression fracture at the superior endplate of T3 there is moderate old compression fracture at the superior endplate of T11. There is mild grade 1 retrolisthesis of T11 on T12. Thoracic spine alignment is otherwise maintained. No acute compression fracture of the thoracic spine is identified. There is mild right convexity thoracic scoliosis. There is degenerative spondylosis. There is no acute compression fracture of the lumbar spine. There is minimal grade 1 retrolisthesis of L4 on L5. There is T12/L1 and L4/L5 vacuum disc phenomenon. There is lower lumbar facet hypertrophy. IMPRESSION: 1. No acute traumatic injury in the chest, abdomen, or pelvis is identified. 2. There is no acute fracture of the thoracic or lumbar spine. 3. Incidental findings as above. Heart Score: Risk Factors: Risk Factors: DM, Current or recent (<one month) smoker, HTN, HLP, family history of CAD, obesity. Risk Scores: Score 0 - 3: 2.5% MACE over next 6 weeks - Discharge Home Score 4 - 6: 20.3% MACE over next 6 weeks - Admit for Clinical Observation Score 7 - 10: 72.7% MACE over next 6 weeks - Early Invasive Strategies Course & Med Decision Making: Course & Med Decision Making Pertinent Labs and Imaging studies reviewed. (See chart for details) [] Dragon Disclaimer: Dragon Disclaimer: This electronic medical record was generated, in whole or in part, using a voice recognition dictation system. Departure Departure: Impression: Primary Impression: Fall Additional Impression: Back pain Disposition: 01 DC HOME SELF CARE/HOMELESS Condition: STABLE Referrals: FATIMAH CAPUTO MD (PCP) Patient Instructions: Back Pain, Adult Additional Instructions: Follow-up with Dr. Caputo regarding incidental finding of thyroid nodule. CLEO LOPEZ MD Aug 01, 2020 14:46
[2020-08-01 14:49] LABS: ALBUMIN 3.8 g/dL (3.4-5.0); ALBUMIN/GLOBULIN RATIO 1.4 (1.0-1.7); TOTAL BILIRUBIN 0.5 mg/dL (0.2-1.0); TOTAL PROTEIN 6.5 g/dL (6.4-8.2)
--- NOTE | 2020-08-01 15:17 | RAD ---
PQRS Compliance Statement: One or more of the following individualized dose reduction techniques were utilized for this examinat ion: 1. Automated exposure control 2. Adjustment of the mA and/or kV according to patient size 3. Use of iterative reconstruction technique CT HEAD AND CERVICAL SPINE WITHOUT CONTRAST History: Reason: fall, on plavix / Comparison: CT head without contrast, April 07, 2019. Procedure: Axial images are obtained of the head from the skull base through the vertex without IV co ntrast. Noncontrast helical CT of the cervical spine was performed. Axial, sagittal, and coronal rec onstructions were obtained. Findings: The ventricles and sulci are prominent, consistent with age-related cerebral atrophy. There is periv entricular white matter hypoattenuation. This is a nonspecific finding but is commonly due to chroni c small vessel ischemic disease in a patient of this age. No mass-effect, midline shift, hemorrhage or obvious acute infarction is identified. Basilar cistern s are patent. Bone windows demonstrate no significant calvarial abnormality. The visualized paranasal sinuses are clear. Mastoid air cells are well aerated. There is no evidence of acute fracture or acute malalignment of the cervical spine. There are no perched or jumped facet joints. Facet joints are hypertrophic. The vertebral body height and alignment are maintained. There is disc space narrowing of the cervical spine with relative spar ing of C2/C3 and C7/T1. There is multilevel uncinate process hypertrophy. There are bilateral carotid artery calcifications. Cardiac pacer wires are partially seen. There is a 2 cm right thyroid/isthmus nodule. The visualized lung apices are clear. IMPRESSION: 1. No acute intracranial abnormality. 2. No acute fracture of the cervical spine. 3. There is a 2 cm right thyroid nodule. Consider outpatient thyroid ultrasound if not previously pe rformed. Electronically signed by: Dougie Christianson MD (08/01/2020 3:15 PM) [facility]
[2020-08-01 15:30] VITALS: BP 171/77
--- NOTE | 2020-08-01 15:33 | RAD ---
PQRS Compliance Statement: One or more of the following individualized dose reduction techniques were utilized for this examinat ion: 1. Automated exposure control 2. Adjustment of the mA and/or kV according to patient size 3. Use of iterative reconstruction technique CT THORACIC SPINE WO, CT CHEST_ABDOMEN_ AND PELVIS WITHOUT CONTRAST, CT LUMBAR SPINE WO Clinical Indication: Reason: fall, on plavix / Comparison: None. Technique: Helical CT imaging of the chest, abdomen and pelvis is performed without IV or oral contra st. Using source images small [id number] multiplanar reconstructions of the thoracic and lumbar sp ine performed using bone algorithm. Findings: In the setting of trauma, sensitivity for detection of pathology is significantly decreased without I V contrast. There is right thyroid nodule, please refer to CT cervical spine report for further details. There is left chest dual-chamber pacer. No acute mediastinal hematoma is identified. The main pulmonary arter ies are dilated suggesting pulmonary arterial hypertension. There is three-vessel coronary artery dis ease. There is marked mitral annular calcification. There is severe calcific aortic valve stenosis. T he cardiac size is normal, no pericardial effusion. There is small hiatal hernia. There is no pneumothorax. There is no pulmonary contusion. There is minimal atelectasis or scarring i n the lung bases. There is no acute traumatic solid organ injury in the upper abdomen. Moderate atherosclerotic calcifi cation of the abdominal aorta, no aneurysm. No acute injury of bowel is identified. There is moderate to severe sigmoid colon diverticulosis. The appendix is normal. There is no intraperitoneal free air or free fluid. The urinary bladder is intact. Hysterectomy. There is right femur intramedullary bob and hip screw. Old fracture of the intertrochanteric right fe mur. There is old fracture of the left superior pubic ramus. The hip joints are intact. Diffuse demin eralization decreases sensitivity. There are chronic appearing nondisplaced bilateral rib fractures. There is mild old compression fracture at the superior endplate of T3 there is moderate old compressi on fracture at the superior endplate of T11. There is mild grade 1 retrolisthesis of T11 on T12. Thor acic spine alignment is otherwise maintained. No acute compression fracture of the thoracic spine is identified. There is mild right convexity thoracic scoliosis. There is degenerative spondylosis. There is no acute compression fracture of the lumbar spine. There is minimal grade 1 retrolisthesis o f L4 on L5. There is T12/L1 and L4/L5 vacuum disc phenomenon. There is lower lumbar facet hypertrophy . IMPRESSION: 1. No acute traumatic injury in the chest, abdomen, or pelvis is identified. 2. There is no acute fracture of the thoracic or lumbar spine. 3. Incidental findings as above. Electronically signed by: Dougie Christianson MD (08/01/2020 3:31 PM) [facility]
[2020-08-01] MEDS ORDERED: METOCLOPRAMIDE HCL 10 MG/2 ML VIAL. IVP ONE (15:45)
[2020-08-01 15:47] LABS: BACTERIA,URINE 0 /HPF (0-FEW); BILIRUBIN,URINE NEG (NEG); CLARITY,URINE CLEAR; COLOR,URINE COLORLESS; GLUCOSE,URINE NEG (NEG); NITRITE,URINE NEG (NEG); RBC,URINE 0 /HPF (0-2); UROBILINOGEN,URINE 0.2 mg/dL (0.2 mg/dL); WBC,URINE 0 /HPF (0-4)
[2020-08-01] MEDS ORDERED: ACETAMINOPHEN 325 MG TABLET PO ONE (16:00)
== END 2020-08-01 16:07 | disposition home or self-care (01) ==
LOC: ER 13:58
DX: M54.5 Low back pain (principal); M54.6 Pain in thoracic spine; I25.10 Atherosclerotic heart disease of native coronary artery without angina pectoris; E78.00 Pure hypercholesterolemia, unspecified; I10 Essential (primary) hypertension; G30.9 Alzheimer's disease, unspecified; F02.80 Dementia in other diseases classified elsewhere, unspecified severity, without behavioral disturbance, psychotic disturbance, mood disturbance, and anxiety; Z87.440 Personal history of urinary (tract) infections; W18.39XA Other fall on same level, initial encounter; Y93.89 Activity, other specified; Y92.89 Other specified places as the place of occurrence of the external cause; Y99.8 Other external cause status
CPT/HCPCS: 36415; 70450; 71250; 72125; 72128; 72131; 74176; 80053; 81001; 83605; 84484; 85025; 85610; 99285; P9612

== ENCOUNTER 2021-04-23 13:21 | Emergency (ER) | payer MEDICARE, OTHER ==
[~2021-04-23] VITALS: Ht 152.4 cm; Wt 52.4 kg
--- NOTE | 2021-04-23 14:04 | PHYS DOC ---
Past History Past Medical History: CAD, Dementia, High Cholesterol, Hypertension, UTI Additional Past Medical Histor: PT is on Hospice (RAJENDRA HERNANDEZ APRN) Past Surgical History: Hysterectomy (RAJENDRA HERNANDEZ APRN) Alcohol Use: None Drug Use: None (RAJENDRA HERNANDEZ APRN) General Adult EDM: Chief Complaint: KNEE INJURY HPI: HPI: Patient is an 89-year-old female who presents to the emergency department following a fall. Patient has a history of dementia and is alert and oriented to self per her baseline. Patient is at her baseline mental status. She reports that around 730 she was getting out of bed and fell. Patient is unsure if she hit her head or any loss of consciousness. Patient is on hospice. She has no complaints at this time. Patient denies any pain. Family reports that patient was complaining of left knee and thigh pain at the time and sent her in to make sure she did not have a fracture. (RAJENDRA HERNANDEZ APRN) Review of Systems: Review of Systems: 14 body systems of the review of systems have been reviewed. See HPI for pertinent positive and negative responses, otherwise all other systems are negative, nonpertinent or noncontributory (RAJENDRA HERNANDEZ APRN) Allergies: Allergies: Allergies Coded Allergies Type Severity Reaction Last Updated Verified No Known Drug Allergies 08/01/17 No (RAJENDRA HERNANDEZ APRN) Physical Exam: PE: Constitutional: Well developed, well nourished, no acute distress, non-toxic appearance. [] HENT: Normocephalic, atraumatic, bilateral external ears normal, oropharynx moist, no oral exudates, nose normal. [] Eyes: PERRL, EOMI, conjunctiva normal, no discharge. [] Neck: Normal range of motion, no bony spinal tenderness, supple, no stridor. [] Cardiovascular:Heart rate regular rhythm, no murmur [] Lungs & Thorax: Bilateral breath sounds clear to auscultation [] Abdomen: Bowel sounds normal, soft, no tenderness, no masses, no pulsatile masses. [] Skin: Warm, dry, no erythema, no rash. [] Back: No bony spinal tenderness, normal range of motion Extremities: No tenderness, no cyanosis, no clubbing, ROM intact, no edema, no shortening or rotation, no obvious deformities, no pain with palpation of the pelvis or hips. Left thigh: Patient is reporting pain to medial aspect of left thigh, full range of motion, neuro intact, no crepitus or obvious deformities, no open wounds [] Neurologic: Alert and oriented X 3, normal motor function, normal sensory fu nction, no focal deficits noted. [] Psychologic: Affect normal, judgement normal, mood normal. [] (RAJENDRA HERNANDEZ APRN) Current Patient Data: Vital Signs: Vital Signs Date Time Temp Pulse Resp B/P (MAP) Pulse Ox O2 Delivery O2 Flow Rate FiO2 04/23/21 13:21 98.1 87 18 194/82 (119) 94 Room Air (RAJENDRA HERNANDEZ APRN) EKG: EKG: [] (RAJENDRA HERNANDEZ APRN) Radiology/Procedures: Radiology/Procedures: []PROCEDURE: KNEE LEFT 3V EXAM: Left femur, 2 views; left knee, 2 views. HISTORY: Fall. COMPARISON: None. FINDINGS: 2 views of the left femur and 3 views of the left knee are obtained. There is a displaced femoral neck fracture. There is lucency traversing the greater trochanter which may also be due to a mildly displaced fracture. There is bone demineralization. This limits evaluation of bony detail. There is benign sclerosis within the distal femoral metaphysis. There is enthesopathy along the superior patella. IMPRESSION: Left femoral neck fracture. There is also lucency traversing the left greater trochanter which may be due to a mildly displaced fracture. Electronically signed by: Eneida Honeycutt MD (04/23/2021 2:03 PM) [id number] DICTATED AND SIGNED BY: ENEIDA HONEYCUTT MD DATE: 04/23/21 1401 CC: FATIMAH CAPUTO MD; RAJENDRA HERNANDEZ APRN ~MTH0 0 PROCEDURE: CT HEAD AND CERVICAL SPINE WO EXAM: 1. CT HEAD WITHOUT CONTRAST. 2. CT CERVICAL SPINE WITHOUT CONTRAST. HISTORY: Fall, trauma. TECHNIQUE: Computed tomography of the head and cervical spine was performed without intravenous contrast. One or more of the following individualized dose reduction techniques were utilized for this examination: 1. Automated exposure control. 2. Adjustment of the mA and/or kV according to patient size. 3. Use of iterative reconstruction technique. COMPARISON: 08/01/2020. FINDINGS: There is no intracranial hemorrhage. Hypoattenuation within the white matter indicates moderate chronic microangiopathic change. Prominence of the lateral ventricles and hemispheric sulci indicates moderate atrophy. The visualized paranasal sinuses appear clear. There are changes of bilateral cataract surgery. The temporal bones are unremarkable. The calvarium reveals no suspicious lesions. There are atherosclerotic calcifications of the internal carotid and vertebral arteries. There is mild scarring along the left parietal scalp. Alignment is maintained. 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 No fractures are identified. Degenerative disc disease is moderate to severe from C3 through C7. Osteopenia is at least moderate. There is no prevertebral soft tissue swelling. At C2-3, there is a small posterior disc bulge. Facet osteoarthritis is mild on the left and moderate on the right. At C3-4, there is a moderate posterior disc bulge. Central canal stenosis is mild. Left facet and uncovertebral osteoarthritis are moderate. Left facet osteoarthritis is moderate. At C4-5, there is a small posterior disc-osteophyte complex. Uncovertebral osteoarthritis is moderate bilaterally. Neural foraminal stenosis is moderate on the left. At C5-6, there is a small posterior disc-osteophyte complex. Uncovertebral osteoarthritis is moderate on the left greater than right. Neural foraminal stenosis is moderate on the left and mild on the right. At C6-7, there is a moderate uncovertebral osteoarthritis. Neural foraminal stenosis is mild bilaterally. Pacemaker leads are noted on the left. IMPRESSION: 1. No acute intracranial findings. 2. 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 3. No cervical fracture or malalignment. 4. Moderate degenerative changes for patient age as detailed above. Electronically signed by: Florin Hernandez MD (04/23/2021 3:03 PM) [id number] DICTATED AND SIGNED BY: ANGI HERNANDEZ MD DATE: 04/23/21 1451 CC: FATIMAH CAPUTO MD; RAJENDRA HERNANDEZ APRN ~MTH0 0 (RAJENDRA HERNANDEZ APRN) Heart Score: C/O Chest Pain: N/A Risk Factors: Risk Factors: DM, Current or recent (<one month) smoker, HTN, HLP, family history of CAD, obesity. Risk Scores: Score 0 - 3: 2.5% MACE over next 6 weeks - Discharge Home Score 4 - 6: 20.3% MACE over next 6 weeks - Admit for Clinical Observation Score 7 - 10: 72.7% MACE over next 6 weeks - Early Invasive Strategies (RAJENDRA HERNANDEZ APRN) Course & Med Decision Making: Course & Med Decision Making Pertinent Labs and Imaging studies reviewed. (See chart for details) [] Patient presents to the emergency department following a fall out of bed. Patient is reporting left thigh pain. Imaging was performed of patient's left thigh and knee as family stated that they were concerned that she may have injured her knee. CT imaging of head and neck was performed. CT imaging of head and neck was unremarkable. Patient was noted to have a left femoral neck fracture and a left greater trochanter mildly displaced fracture. I spoke to Dr. Piper at [facility] orthopedic group and he agreed to see the patient when she was transferred to [facility]. I discussed the findings with Dr. Cabrera and he agreed to admit the patient under his services. I discussed admission and potential treatment options for patient femoral neck fracture with her daughter and her daughter states that she would like the patient to have surgery and would be okay with taking her off of hospice. She reports that she had already talked to hospice nurse and at [facility], there will be a territory service representative for hospice there so that they can take her off of hospice. (RAJENDRA HERNANDEZ APRN) Course & Med Decision Making Did not see or evaluate patient. Did not discuss patient with [facility]. Agree with W[facility]'s work-up and disposition per note (MARCI WATSON MD) Dragon Disclaimer: Dragon Disclaimer: This electronic medical record was generated, in whole or in part, using a voice recognition dictation system. (RAJENDRA HERNANDEZ APRN) Departure Departure: Impression: Primary Impression: Femur fracture, left Qualified Codes: S72.002A - Fracture of unspecified part of neck of left femur, initial encounter for closed fracture Disposition: 02 SHORT TERM HOSPITAL Condition: GOOD Referrals: FATIMAH CAPUTO MD (PCP) RAJENDRA HERNANDEZ APRN Apr 23, 2021 14:04 MARCI WATSON MD Apr 26, 2021 18:07
--- NOTE | 2021-04-23 14:05 | RAD ---
EXAM: Left femur, 2 views; left knee, 2 views. HISTORY: Fall. COMPARISON: None. FINDINGS: 2 views of the left femur and 3 views of the left knee are obtained. There is a displaced f emoral neck fracture. There is lucency traversing the greater trochanter which may also be due to a m ildly displaced fracture. There is bone demineralization. This limits evaluation of bony detail. Ther e is benign sclerosis within the distal femoral metaphysis. There is enthesopathy along the superior patella. IMPRESSION: Left femoral neck fracture. There is also lucency traversing the left greater trochanter which may be due to a mildly displaced fracture. Electronically signed by: Eneida Santillan MD (04/23/2021 2:03 PM) [id number]
--- NOTE | 2021-04-23 15:06 | RAD ---
EXAM: 1. CT HEAD WITHOUT CONTRAST. 2. CT CERVICAL SPINE WITHOUT CONTRAST. HISTORY: Fall, trauma. TECHNIQUE: Computed tomography of the head and cervical spine was performed without intravenous contr ast. One or more of the following individualized dose reduction techniques were utilized for this exa mination: 1. Automated exposure control. 2. Adjustment of the mA and/or kV according to patient size. 3. Use of iterative reconstruction technique. COMPARISON: 08/01/2020. FINDINGS: There is no intracranial hemorrhage. Hypoattenuation within the white matter indicates mod erate chronic microangiopathic change. Prominence of the lateral ventricles and hemispheric sulci ind icates moderate atrophy. The visualized paranasal sinuses appear clear. There are changes of bilateral cataract surgery. The t emporal bones are unremarkable. The calvarium reveals no suspicious lesions. There are atheroscleroti c calcifications of the internal carotid and vertebral arteries. There is mild scarring along the lef t parietal scalp. Alignment is maintained. 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 No fractures are identified. Degenerat caron disc disease is moderate to severe from C3 through C7. Osteopenia is at least moderate. There is no prevertebral soft tissue swelling. At C2-3, there is a small posterior disc bulge. Facet osteoarthritis is mild on the left and moderate on the right. At C3-4, there is a moderate posterior disc bulge. Central canal stenosis is mild. Left facet and unc overtebral osteoarthritis are moderate. Left facet osteoarthritis is moderate. At C4-5, there is a small posterior disc-osteophyte complex. Uncovertebral osteoarthritis is moderate bilaterally. Neural foraminal stenosis is moderate on the left. At C5-6, there is a small posterior disc-osteophyte complex. Uncovertebral osteoarthritis is moderate on the left greater than right. Neural foraminal stenosis is moderate on the left and mild on the ri ght. At C6-7, there is a moderate uncovertebral osteoarthritis. Neural foraminal stenosis is mild bilatera lly. Pacemaker leads are noted on the left. IMPRESSION: 1. No acute intracranial findings. 2. 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 3. No cervical fracture or malalignment. 4. Moderate degenerative changes for patient age as detailed above. Electronically signed by: Florin Hernandez MD (04/23/2021 3:03 PM) [id number]
[2021-04-23] MEDS: HYDROcodone/APAP 5/325MG 1 TAB TABLET PO ONE (15:44)
[2021-04-23 16:30] LABS: BILIRUBIN,URINE NEG (NEG); CLARITY,URINE CLEAR; COLOR,URINE YELLOW; GLUCOSE,URINE NEG (NEG)
[2021-04-23 16:31] LABS: BACTERIA,URINE 0 /HPF (0-FEW); NITRITE,URINE NEG (NEG); RBC,URINE OCC /HPF (0-2); SQUAMOUS EPITHELIAL CELL,UR FEW /LPF; UROBILINOGEN,URINE 0.2 mg/dL (0.2 mg/dL); WBC,URINE 0 /HPF (0-4)
[2021-04-23 18:32] LABS: BASO % 0 % (0-3); CALCIUM 8.9 mg/dL (8.5-10.1); CREATININE 0.9 mg/dL (0.6-1.0); EOS % 0 % (0-3); HEMATOCRIT 42.3 % (36.0-47.0); HEMOGLOBIN 14.1 g/dL (12.0-15.5); LYMPH # 1.4 x10^3/uL (1.0-4.8); LYMPH % 9 % (24-48); MEAN CORPUSCULAR HEMOGLOBIN 31 pg (25-35); MEAN CORPUSCULAR HGB CONC 33 g/dL (31-37); MEAN CORPUSCULAR VOLUME 93 fL (79-100); MONO # 1.2 x10^3/uL (0.0-1.1); MONO % 8 % (0-9); NEUT # 12.2 x10^3uL (1.8-7.7); NEUT % 83 % (31-73); PLATELET COUNT 194 x10^3/uL (140-400); POTASSIUM 4.4 mmol/L (3.5-5.1); RED BLOOD COUNT 4.56 x10^6/uL (3.50-5.40); RED CELL DISTRIBUTION WIDTH 14.4 % (11.5-14.5); WHITE BLOOD COUNT 14.8 x10^3/uL (4.0-11.0)
[2021-04-23 18:38] LABS: ALBUMIN 4.2 g/dL (3.4-5.0); ALBUMIN/GLOBULIN RATIO 1.5 (1.0-1.7)
[2021-04-23] MEDS: IV NORMAL SALINE 1,000ML 1,000 ML IV ONE (18:40)
[2021-04-23 21:57] VITALS: BP 127/84
== END 2021-04-23 22:10 | disposition short-term general hospital (02) ==
LOC: ER 13:21
DX: S72.002A Fracture of unspecified part of neck of left femur, initial encounter for closed fracture (principal); F03.90 Unspecified dementia, unspecified severity, without behavioral disturbance, psychotic disturbance, mood disturbance, and anxiety; I25.10 Atherosclerotic heart disease of native coronary artery without angina pectoris; E78.00 Pure hypercholesterolemia, unspecified; I10 Essential (primary) hypertension; Z20.822 Contact with and (suspected) exposure to COVID-19; Z87.440 Personal history of urinary (tract) infections; W18.39XA Other fall on same level, initial encounter; Y93.89 Activity, other specified; Y92.89 Other specified places as the place of occurrence of the external cause; Y99.8 Other external cause status
CPT/HCPCS: 36415; 70450; 72125; 73552; 73562; 80053; 81001; 85025; 87426; 96361; 96374; 99285; C9803; J3010; J7030; P9612; U0003